=== PATIENT | male | born 1940 | race Two or more races ===

== ENCOUNTER 2020-12-06 16:48 | Inpatient (IN) | payer OTHER ==
[~2020-12-06] VITALS: Ht 172.7 cm; Wt 81.6 kg
[~2020-12-06 16:48] MED LIST: NEURONTIN300 MG PO; PERCOCET 5/3251 TAB PO; POLY119PG PO
--- NOTE | 2020-12-06 17:37 | NUR ---
SE RECIBE PACIENTE MASCULINO ALERTA Y ORIENTADO EN LAS JAMES ESFERAS EL CUAL PRESENTA PRUEBA DE COVID 19 POSITIVA REIFERE DOLOR ABDOMINAL Y PERDIDA DE APETITO DESDE HACE VARIOS MITCHELL. SE UBICA PACIENTE EN SEC K.
--- NOTE | 2020-12-06 18:48 | NUR ---
PACIENTE EVALUADO POR DR. LAKHANI. RN RIVERA LE ORIENTA SOBRE TRATAMIENTO A SEGUIR, PTE REFIERE ENTENDER. RN LE EXTRAE MUESTRAS DE LABORATORIO UTILIZANDO MEDIDAS ASEPTICAS. LE ADMINISTRA MEDICAMENTOS [place] ORDEN MEDICA, PTE NO PRESENTA REACCION ADVERSA AL MOMENTO. SE MANTIENE BAJO OBSERVACION POR CAMBIOS.
--- NOTE | 2020-12-07 00:03 | NUR ---
SE RECIBE PTE ALERTA Y ORIENTADO X3 EN RAY CON BARANDAS ELEVADAS. TPE CON CN A 3LTS. PTE CON H/L EL CUAL SE ENCUENTRA PATENTE Y ALONA DE EDEMA. PTE SE CONTINUA MONITORIANDO.
--- NOTE | 2020-12-07 07:09 | NUR ---
SE RECIBE PACIENTE ALERTA Y ORIENTADA EN TIEMPO LUGAR Y PERSONA. CON VENOPUNCION PATENTE, ALONA DE ERITEMA Y EDEMA, RECIBIENDO AL MOMENTO 0.9 A 80ML/HR. PENDIENTE LABORATORIO DE [facility]G'[facility]. SE ORIENTA A PACIENTE SOBRE CONTINUIDAD DE CUIDADO Y TRATAMIENTO DE ENFERMERIA. PTE ALONA DE DOLOR AL MOMENTO. SE MANTIENE EN OBSERVACION POR CAMBIOS EN COLÓN CONDICION. RECIBIENDO OXIGENO MEDIANTE CANULA NASAL A 3LTS.
[2020-12-20] MEDS ORDERED: ELIQUIS5 MG PO (14:54)
[2020-12-20] MEDS ORDERED: MEDROLPACK PO (14:57)
[2020-12-20] MEDS ORDERED: INTESTINEX680 M1 PO (14:57)
[2020-12-20] MEDS ORDERED: ORAPRED ODT10 MG PO (14:57)
[2020-12-20] MEDS ORDERED: PREVACID30 M1 PO (14:58)
== END 2020-12-20 21:10 | disposition home or self-care (01) | DRG 177 ==
LOC: ER 16:48 → MEDJ 12-07 11:09
PROVIDERS: ADMIT Internal Medicine; ATTEND Internal Medicine
PROC: 8E0ZXY6 Isolation (ICD-10-PCS; principal; 2020-12-07)
PROC: XW033E5 Introduction of Remdesivir Anti-infective into Peripheral Vein, Percutaneous Approach, New Technology Group 5 (ICD-10-PCS; 2020-12-07)
PROC: 4A033R1 Measurement of Arterial Saturation, Peripheral, Percutaneous Approach (ICD-10-PCS; 2020-12-07)
PROC: CB2YYZZ Tomographic (Tomo) Nuclear Medicine Imaging of Respiratory System using Other Radionuclide (ICD-10-PCS; 2020-12-07)
PROC: 3E0F7SF Introduction of Other Gas into Respiratory Tract, Via Natural or Artificial Opening (ICD-10-PCS; 2020-12-08)
DX: U07.1 COVID-19 (principal); J12.82 Pneumonia due to coronavirus disease 2019; I26.99 Other pulmonary embolism without acute cor pulmonale; R09.02 Hypoxemia; R43.2 Parageusia; R43.0 Anosmia

== ENCOUNTER 2021-01-22 11:13 | Emergency (ER) | payer OTHER ==
[~2021-01-22] VITALS: Ht 172.7 cm; Wt 81.6 kg
[~2021-01-22 11:13] MED LIST changes: +ELIQUIS5 MG PO; +INTESTINEX680 M1 PO; +MEDROLPACK PO; +ORAPRED ODT10 MG PO; +PREVACID30 M1 PO
[2021-01-22] MEDS ORDERED: PLAVIX75 MG (11:31)
== END 2021-01-22 14:36 | disposition home or self-care (01) ==
LOC: ER 11:13
DX: R07.81 Pleurodynia (principal); U07.1 COVID-19

== ENCOUNTER 2021-04-06 10:56 | Outpatient (CLI) | payer OTHER ==
[~2021-04-06 10:56] MED LIST changes: +PLAVIX75 MG
== END 2021-04-06 11:04 | disposition home or self-care (01) ==
LOC: TOM 10:56
PROVIDERS: ATTEND Internal Medicine Pulmonary Disease
DX: I26.99 Other pulmonary embolism without acute cor pulmonale (principal); Z86.16 Personal history of COVID-19
CPT/HCPCS: 71260; Q9965

== ENCOUNTER 2023-06-14 07:15 | Outpatient (CLI) | payer OTHER | END 2023-06-14 07:24 | disposition home or self-care (01) | LOC: TOM 07:15 | PROVIDERS: ATTEND Internal Medicine Gastroenterology | DX: K56.609 Unspecified intestinal obstruction, unspecified as to partial versus complete obstruction (principal); K63.5 Polyp of colon ==